=== PATIENT | male | born 1985 | race Caucasian/White ===

== ENCOUNTER 2024-05-18 17:58 | Emergency (ER) | payer SELFPAY ==
[2024-05-18] MEDS ORDERED: Boostrix 0.5 ML (Tdap) VIAL (>/=7 yrs of age) ONE (18:51)
[2024-05-18] MEDS ORDERED: Lidocaine 1% (PF) 30 ML VIAL ONE (18:51)
[2024-05-18] MEDS ORDERED: Bacitracin 1 PK ONE (19:25)
== END 2024-05-18 19:48 | disposition home or self-care (01) ==
LOC: CSHERS 17:58
DX: S61.012A Laceration without foreign body of left thumb without damage to nail, initial encounter (principal); W26.0XXA Contact with knife, initial encounter; Z23 Encounter for immunization
CPT/HCPCS: 90715